=== PATIENT | female | born 2000 | race Two or more races ===

== ENCOUNTER 2022-05-22 20:25 | Emergency (ER) | payer OTHER ==
[~2022-05-22] VITALS: Ht 157.5 cm; Wt 56.7 kg
[2022-05-22] MEDS ORDERED: CLEOCIN HCL300 MG PO (20:52)
[2022-05-22] MEDS ORDERED: KETO10TA2 PO (20:52)
== END 2022-05-22 21:06 | disposition home or self-care (01) ==
LOC: ER 20:25 → EMR PED 20:31 → ER 20:31 → EMR PED 21:06
DX: S61.302A Unspecified open wound of right middle finger with damage to nail, initial encounter (principal); X58.XXXA Exposure to other specified factors, initial encounter; Y93.9 Activity, unspecified; Y92.9 Unspecified place or not applicable